=== PATIENT | male | born 1975 | race Caucasian/White ===

== ENCOUNTER → 2018-11-16 10:05 | Outpatient (CLI) | payer OTHER, SELFPAY ==
--- NOTE | 2018-11-16 10:08 | DI.RAD.S_ITS ---
PROCEDURE: XR FOOT LT MIN 3V INDICATIONS: rolled left ankle/foot w/pain/swelling TECHNIQUE: 3 views of the foot were acquired. COMPARISON: None. FINDINGS: Bones: No fractures or dislocations. No suspicious bony lesions. Calcaneal spurring. Soft tissues: No tibiotalar joint effusion. Achilles tendon appears normal. IMPRESSION: No fracture or dislocation. Dictated by: Aiyln Frederick M.D. on 11/16/2018 at 10:31 Approved by: Ailyn Frederick M.D. on 11/16/2018 at 10:32
--- NOTE | 2018-11-16 10:08 | DI.RAD.S_ITS ---
PROCEDURE: XR ANKLE LT MIN 3V INDICATIONS: rolled left ankle/foot w/pain/swelling TECHNIQUE: 3 views of the ankle were acquired. COMPARISON: [facility], CR, XR FOOT LT MIN 3V, 11/16/2018, 10:12. FINDINGS: Bones: No fractures or dislocations. Ankle mortise is normally aligned. No suspicious bony lesions. Calcaneal spurring. Soft tissues: No tibiotalar joint effusion. Achilles tendon appears normal. Soft tissue swelling in the lateral malleolus. IMPRESSION: No fracture or dislocation. Soft tissue swelling over the lateral malleolus. Dictated by: Ailyn Frederick M.D. on 11/16/2018 at 10:30 Approved by: Ailyn Frederick M.D. on 11/16/2018 at 10:31
== END ==
PROVIDERS: Visit Provider Nurse Practitioner
DX: M25.572 Pain in left ankle and joints of left foot (principal); M77.32 Calcaneal spur, left foot; R79.89 Other specified abnormal findings of blood chemistry
CPT/HCPCS: 73610; 73630

== ENCOUNTER 2024-02-05 10:32 | Emergency (ER) | payer OTHER, SELFPAY ==
[2024-02-05] VITALS (7 sets, daily range): BP systolic 133–171; BP diastolic 74–97; PULSE 91–116; RESP 14–20; TEMP 37.1; O2SAT 94–98; BMI 29.0
--- NOTE | 2024-02-05 10:56 | DI.RAD.S_ITS ---
PROCEDURE: XR CHEST 1V INDICATIONS: chest pain TECHNIQUE: One view of the chest was acquired. COMPARISON: None. FINDINGS: Surgical changes and devices: None. Lungs and pleura: Lungs are clear. No pleural effusions or pneumothorax. Mediastinum: Mediastinal contours appear normal. Heart size is normal. Bones and chest wall: No suspicious bony lesions. Overlying soft tissues appear unremarkable. IMPRESSION: No acute cardiothoracic process. Dictated by: Ridge Owusu M.D. on 02/05/2024 at 11:50 Approved by: Ridge Owusu M.D. on 02/05/2024 at 11:50
--- NOTE | 2024-02-05 10:56 | EKG_ITS ---
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
--- NOTE | 2024-02-05 11:11 | ED_ITS ---
HPI - General Adult General Chief complaint: Shortness of Breath/Dyspnea Stated complaint: Stomach pain, Shaky, flutter in chest Time Seen by Provider: 02/05/24 10:59 History of Present Illness HPI narrative: 48-year-old gentleman leans that he is not feeling well with fluttering in his chest since 9:00 p.m. increasing tremors, sense of constipation, he notes that he does drink alcohol regularly but does not consider himself an alcoholic and denies any history of withdrawal symptoms. He reports his usual alcohol volume last night, got up and was playing basketball with friends this morning. Describes his abdominal pain as involving the entire upper abdomen and tight. He feels that he has been increasingly constipated over the last couple of days today has not had a bowel movement but is passing flatus. No vomiting, fevers, headache, chest pain or palpitations Related Data Previous Rx's Medication Instructions Recorded omeprazole 40 mg capsule,delayed 40 mg PO DAILY #30 caps 02/05/24 release Allergies Allergy/AdvReac Type Severity Reaction Status Date / Time No Known Drug Allergies Allergy Verified 11/16/18 10:57 Review of Systems Review of Systems Narrative: Pertinent positive and negative findings as per HPI Patient History Social History Smoking Status: Never smoker Smoking Status: Never smoker Alcohol type: beer Exam Initial Vital Signs Initial Vital Signs: Vital Signs Temperature 98.7 F 02/05/24 10:52 Pulse Rate 116 H 02/05/24 10:52 Respiratory Rate 20 02/05/24 10:52 Blood Pressure 160/97 H 02/05/24 10:52 Pulse Oximetry 97 02/05/24 10:52 Oxygen Delivery Method Room Air 02/05/24 10:52 General: Healthy appearing but slightly flushed and appears uncomfortable with the abdominal pain HEENT: Moist mucous membranes, normal sclera with reactive pupils, Respiratory: Lungs are clear to auscultation, no wheezing no rales no rhonchi. Full and symmetrical air movement Cardiac: Tachycardic otherwise Regular rate and rhythm no murmurs no bruits Abdomen: Mild distention with guarding throughout the entire abdomen. No rebound, no flank pain Skin: Warm and dry, no rashes Neurologic: Grossly neurologically intact with no obvious asymmetries or abnormalities Extremities: No trauma, well perfused Psych: Cooperative, appropriate insight and affect Course Orders Ordered: ED Orders 02/05/24 10:56 XR chest 1V Stat EKG-12 Lead Stat 02/05/24 11:06 Complete Blood Count AUTO DIFF Stat Comprehensive Metabolic Panel Stat Lipase Stat Magnesium Stat NT-proBNP (BNP-Adult 18+) Stat PTT Partial Thromboplastin Adrian Stat Prothrombin Time INR Stat Troponin & CK Cardiac Panel Stat 02/05/24 11:54 CT abdomen pelvis w con Stat 02/05/24 12:50 Consult to BIOSOLIDS MANAGEMENT TECHNICIAN - Locomotive Mechanic Stat Discontinued Medications Aspirin (Aspirin 81 Mg Chew Tab) 324 mg PO NOW ONE Stop: 02/05/24 10:57 Last Admin: 02/05/24 13:25 Dose: Not Given Documented By: CHANNING Sodium Chloride (Normal Saline 0.9%) 1,000 mls @ 1,000 mls/hr IV BOLUS ONE Stop: 02/05/24 12:53 Last Infusion: 02/05/24 13:09 Dose: Infused Documented By: Admin: 02/05/24 11:59 Dose: 1,000 mls/hr Documented By: DIANNE Pantoprazole Sodium (Pantoprazole 40 Mg Vial) 40 mg IV NOW ONE Stop: 02/05/24 14:34 Last Admin: 02/05/24 14:51 Dose: 40 mg Documented By: CHANNING Vital Signs Vital signs: Vital Signs - 8 hr 02/05/24 10:52 02/05/24 10:59 02/05/24 11:00 Temperature 98.7 F Pulse Rate 116 H 116 H 112 H Respiratory Rate 20 14 15 Blood Pressure 160/97 H Pulse Oximetry 97 98 98 Oxygen Delivery Method Room Air 02/05/24 11:00 02/05/24 11:30 02/05/24 11:30 Temperature Pulse Rate 96 H Respiratory Rate 17 Blood Pressure 144/85 H 137/82 Pulse Oximetry 97 Oxygen Delivery Method 02/05/24 12:00 02/05/24 12:00 02/05/24 14:00 Temperature Pulse Rate 97 H 91 H Respiratory Rate 15 18 Blood Pressure 133/74 Pulse Oximetry 95 94 Oxygen Delivery Method 02/05/24 14:51 Temperature Pulse Rate 93 H Respiratory Rate 16 Blood Pressure 171/93 H Pulse Oximetry 98 Oxygen Delivery Method Room Air Medical Decision Making Lab Data 02/05/24 11:06 02/05/24 11:06 Labs: Lab Results 02/05/24 Range/Units 11:06 WBC 8.4 (4.5-11.0) X10^3/uL RBC 4.74 (4.5-5.9) X10^6/uL Hgb 14.4 (13.5-17.5) g/dL Hct 43.5 (41-53) % MCV 91.8 (80-100) fL MCH 30.5 (26-34) PG MCHC 33.2 (30-36) % RDW 13.3 (11.6-14.8) % Plt Count 162 (150-400) X10^3/uL Neut % (Auto) 84.4 H (50-75) % Lymph % (Auto) 10.6 L (25-40) % Martin % (Auto) 4.4 (3-14) % Eos % (Auto) 0.1 L (2-4) % Baso % (Auto) 0.5 (0-2) % Neut # (Auto) 7100 H (8441-7454) /uL Lymph # (Auto) 900 L (7335-9427) /uL Martin # (Auto) 400 (0-900) /uL Eos # (Auto) 0 (0-450) /uL Baso # (Auto) 0 (0-100) /uL PT 11.0 (9.4-12.5) SECONDS INR 1.0 (0.9-1.3) APTT 31 (25.1-36.5) SECONDS Sodium 138 (137-145) mmol/L Potassium 3.7 (3.4-5.1) mmol/L Chloride 102 (98-107) mmol/L Carbon Dioxide 21 L (22-32) mmol/L BUN 9 (9-20) mg/dL Creatinine 1.06 (0.66-1.25) mg/dL Estimated GFR > 60 (>60) mL/min BUN/Creatinine Ratio 8.5 (6-22) Glucose 85 (70-100) mg/dL Calcium 9.4 (8.4-10.2) mg/dL Magnesium 1.4 L (1.6-2.3) mg/dL Total Bilirubin 0.6 (0.2-1.3) mg/dL AST 135 H (17-59) IU/L ALT 152 H (<50) IU/L Alkaline Phosphatase 73 (38-126) U/L Total Creatine Kinase 240 H (55-170) U/L Troponin I < 0.012 (0.01-0.034) ng/mL NT-Pro-B Natriuret Pep < 20 (<125) pg/mL Total Protein 8.6 H (6.3-8.2) g/dL Albumin 5.2 H (3.5-5.0) g/dL Globulin 3.4 (1.7-4.1) g/dL Albumin/Globulin Ratio 1.5 (1.0-2.8) Lipase 85 (23-300) U/L Imaging Data CT scan - abdomen/pelvis: Radiologist's Impression: PROCEDURE: CT ABDOMEN PELVIS W CON INDICATIONS: diffuse abdominal pain TECHNIQUE: After the administration of intravenous contrast, axial sections acquired from the lung bases to the pubic symphysis. Coronal and sagittal reformats were performed. For radiation dose reduction, the following was used: automated exposure control, adjustment of mA and/or kV according to patient size. COMPARISON: None. FINDINGS: Image quality: Diagnostic. Peritoneum: No pneumoperitoneum or ascites. Bones: No acute osseous abnormality. Bilateral pseudoarthroses at the L5-S1 levels (4/73). Lower Chest: No acute abnormality. Liver: Borderline enlarged at 19.4 cm in the craniocaudal dimension (4/50). Diffuse hypoattenuation. Gallbladder: No stones or pericholecystic fluid. Biliary tree: No intrahepatic or extrahepatic biliary ductal dilatation. Pancreas: Within normal limits. Spleen: Normal in size and contour. Kidneys: No hydronephrosis or obstructive urolithiasis. Adrenals: No adrenal nodularity. Bladder: Mildly distended urinary bladder (5/75). : No acute abnormality. Stomach: Normal in size and contour. Bowel: Normal in diameter without any bowel obstruction. Appendix within normal limits (2/113). Scattered colonic diverticulosis. Lymph Nodes: No retroperitoneal, mesenteric, or inguinal lymphadenopathy. Vascular: No abdominal aortic aneurysm. The visualized arterial vasculature is patent. Soft Tissues: No acute abnormality. IMPRESSION: 1. Hepatomegaly with hepatic steatosis. 2. 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 3. Otherwise, no acute CT abnormality of the abdomen/pelvis. Dictated by: Ridge Owusu M.D. on 02/05/2024 at 13:20 MDM Narrative Medical decision making narrative: CC: Increasing abdominal pain Complicating co-morbidities: Notes that the pain has been intermittently present for about a month increasing over the last 24 hours with tightness such that he came for evaluation today. He reports that he has been taking more ibuprofen on an empty stomach over the last month but no black stools emesis. Data collected from: patient, Differential considered: Acute surgical abdomen, perforated viscus, appendicitis, cholecystitis Exam documented above, pertinent findings include: 48-year-old gentleman uncomfortable with the abdominal tightness with guarding throughout the abdomen no significant rebound heart and lungs are benign Lab Test results independently reviewed as above. Pertinent findings: CBC is unremarkable with no anemia Chemistries are reassuring with normal creatinine. Magnesium slightly low at 1.4. Elevated transaminases with AST at 135. and ALT at 152. Total protein and albumin are both slightly elevated Lipase is unremarkable. Independently reviewed EKG: Sinus tachycardia at 1:07 a.m.. Minor T-wave abnormalities inferiorly, no acute ischemiaImaging studies independently reviewed: Chest X shows no acute abnormality Consultations: BIOSOLIDS MANAGEMENT TECHNICIAN, discussed alcohol use disorder with the patient, still in pre contemplation/denial phase. He is given resources for establishing a primary care provider as well as AA meetings. Treatments: Fluids, IV pantoprazole Postvoid bladder scan had 14 cc Discussion: 48-year-old gentleman presents with abdominal pain across his upper abdomen tenderness with palpation. Labs are reassuring with the exception of slightly elevated ALT and AST. CT scan of the abdomen does not show acute findings to explain his pain. We discussed possible diagnosis of gastritis caused from his alcohol as well as 800 mg of ibuprofen on an empty stomach practice. This point he is pain-free, significantly improved, no evidence of urinary retention or constipation as a cause of the pin. He did talk with our health care social worker about his alcohol use with recommendations to cut down if not completely stop. We discussed his elevated liver studies, need for primary care physician and recommendation to use 30 days of omeprazole to see if this will help the pain. I also recommended that he cut down on ibuprofen. Questions are answered and at this time he is safe for discharge Discharge Plan Departure Patient Disposition: Home Clinical Impression: Abdominal pain Qualifiers: Abdominal location: generalized Qualified Code(s): R10.84 - Generalized abdominal pain Gastritis Qualifiers: Gastritis type: unspecified gastritis Chronicity: acute Gastritis bleeding: w ithout bleeding Qualified Code(s): K29.00 - Acute gastritis without bleeding Instructions: DI for Gastritis Activity Restrictions/Additional Instructions: Thank you for coming in today Your blood work showed elevated liver enzymes but no other acute findings or infections. Your chest x-ray was unremarkable, your CT scan did not show acute abnormalities to explain your pain. There were some developing liver abnormalities appreciated, no gallbladder findings no evidence of infection or need for surgical consultation. Given the pain that you are experiencing I am wondering if you may have some gastritis which is irritation to the stomach lining. Given the mildly elevated liver studies as well as the slight abnormality to your liver appreciated on CT scan, your liver is not appreciating the amount of alcohol and is having to metabolize. Alcohol can also be directly irritating to your stomach lining as can ibuprofen. I have sent a prescription for omeprazole to take daily for the next 30 days to [facility]. This is an acid reducing medication to try and help the stomach lining repair itself. I would recommend decreasing if not stopping altogether your alcohol use. Rather than 800 mg of ibuprofen, consider using 400 mg of ibuprofen (2 [id number] pills) and 1 Tylenol every 6 hours If you find that you are getting worse or develop any new symptoms, please feel free to return to the emergency department for further evaluation. Prescriptions: New omeprazole 40 mg capsule,delayed release(DR/EC) 40 mg PO DAILY Qty: 30 0RF Referrals: Kati Becker FNP-BC [Primary Care Provider] - Stand Alone Forms: Patient Portal/API/Survey
[2024-02-05 11:12] LABS: Add Manual Diff / Slide Review NO; Basophils Absolute Auto 0 /uL (0-100); Basophils Percent Auto 0.5 % (0-2); Eosinophils Absolute Auto 0 /uL (0-450); Eosinophils Percent Auto 0.1 % (2-4); Hematocrit 43.5 % (41-53); Hemoglobin 14.4 g/dL (13.5-17.5); Lymphocytes Absolute Auto 900 /uL (1100-4500); Lymphocytes Percent Auto 10.6 % (25-40); Mean Corpuscular HGB Conc 33.2 % (30-36); Mean Corpuscular Hemoglobin 30.5 PG (26-34); Mean Corpuscular Volume 91.8 fL (80-100); Monocytes Absolute Auto 400 /uL (0-900); Monocytes Percent Auto 4.4 % (3-14); Neutrophils Absolute Auto 7100 /uL (1500-7000); Neutrophils Percent Auto 84.4 % (50-75); Platelet Count 162 X10^3/uL (150-400); Red Blood Cell Count 4.74 X10^6/uL (4.5-5.9); Red Cell Distribution Width 13.3 % (11.6-14.8); White Blood Cell Count 8.4 X10^3/uL (4.5-11.0)
[2024-02-05 11:22] LABS: PTT Partial Thromboplastin Tim 31 SECONDS (25.1-36.5)
[2024-02-05 11:26] LABS: Alanine Aminotransferase 152 IU/L (<50); Albumin 5.2 g/dL (3.5-5.0); Albumin Globulin Ratio 1.5 (1.0-2.8); Alkaline Phosphatase 73 U/L (38-126); Aspartate Aminotransferase 135 IU/L (17-59); BUN Creatinine Ratio 8.5 (6-22); Bilirubin Total 0.6 mg/dL (0.2-1.3); Blood Urea Nitrogen 9 mg/dL (9-20); Calcium 9.4 mg/dL (8.4-10.2); Carbon Dioxide 21 mmol/L (22-32); Chloride 102 mmol/L (98-107); Creatine Kinase 240 U/L (55-170); Estimated Glomerular Filt Rate > 60 mL/min (>60); Globulin 3.4 g/dL (1.7-4.1); Glucose 85 mg/dL (70-100); HEMOLYSIS < 15 (0-50); Lipase 85 U/L (23-300); Magnesium 1.4 mg/dL (1.6-2.3); Potassium 3.7 mmol/L (3.4-5.1); Sodium 138 mmol/L (137-145); Total Protein 8.6 g/dL (6.3-8.2)
[2024-02-05 11:36] LABS: NT-proBNP (BNP-Adult 18+) < 20 pg/mL (<125); Troponin I < 0.012 ng/mL (0.01-0.034)
--- NOTE | 2024-02-05 11:52 | PC.NURSE ---
Patient has been having abd discomfort for a month. He has not had a bm today but is passing gas. This am at 0900 he began having fluttering feelings in his chest. He denies nausea and pain. No history of surgery Patient drinks alcohol on a regular basis. last drink was last night
--- NOTE | 2024-02-05 11:54 | DI.CT.S_ITS ---
PROCEDURE: CT ABDOMEN PELVIS W CON INDICATIONS: diffuse abdominal pain TECHNIQUE: After the administration of intravenous contrast, axial sections acquired from the lung bases to the pubic symphysis. Coronal and sagittal reformats were performed. For radiation dose reduction, the following was used: automated exposure control, adjustment of mA and/or kV according to patient size. COMPARISON: None. FINDINGS: Image quality: Diagnostic. Peritoneum: No pneumoperitoneum or ascites. Bones: No acute osseous abnormality. Bilateral pseudoarthroses at the L5-S1 levels (4/73). Lower Chest: No acute abnormality. Liver: Borderline enlarged at 19.4 cm in the craniocaudal dimension (4/50). Diffuse hypoattenuation. Gallbladder: No stones or pericholecystic fluid. Biliary tree: No intrahepatic or extrahepatic biliary ductal dilatation. Pancreas: Within normal limits. Spleen: Normal in size and contour. Kidneys: No hydronephrosis or obstructive urolithiasis. Adrenals: No adrenal nodularity. Bladder: Mildly distended urinary bladder (5/75). : No acute abnormality. Stomach: Normal in size and contour. Bowel: Normal in diameter without any bowel obstruction. Appendix within normal limits (2/113). Scattered colonic diverticulosis. Lymph Nodes: No retroperitoneal, mesenteric, or inguinal lymphadenopathy. Vascular: No abdominal aortic aneurysm. The visualized arterial vasculature is patent. Soft Tissues: No acute abnormality. IMPRESSION: 1. Hepatomegaly with hepatic steatosis. 2. 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 3. Otherwise, no acute CT abnormality of the abdomen/pelvis. Dictated by: Ridge Owusu M.D. on 02/05/2024 at 13:20 Approved by: Ridge Owusu M.D. on 02/05/2024 at 13:24
[2024-02-05] MEDS: SODIUM CHLORIDE 0.9% 1,000 ML 1000 ML IV (11:59)
[2024-02-05] MEDS: PANTOPRAZOLE 40 MG VIAL IV (14:51)
--- NOTE | 2024-02-05 15:19 | CM.SWNOTE ---
ED SUSPECT ARTIST Note SUSPECT ARTIST receives consult from RN due to patient's ETOH use and it was reported that he and spouse would like to speak with SUSPECT ARTIST about resources. Patient is 48 y/o male who presents to the ED due to concern for fluttering feeling in chest, constipation and shakiness. Patient reports he drinks 6-8 beers a day. Patient states he does not have a PCP, patient has [employer] preferred insurance. SUSPECT ARTIST enters room to meet with patient, patient presents as A/Ox4. Patient endorses he was concerned about his abdominal pain and came to the ED. Patient discusses his regular ETOH use and states he drinks to cope, patient endorses concern for finanacial stressors, stress from work and now states concern for his health. Patient endorses he would like to get in good health for new year. SUSPECT ARTIST discusses ETOH outpatient resources and AA with patient and provides information to patient. Patient endorses interest in establishing care with PCP and would like assistance with this. SUSPECT ARTIST contacts [address] and schedules PCP appt with PARRISH Srivastava for 02/11/24 at 8:15am check in. Patient endorses agreement and understanding. Plan: patient to d/c to home upon medical clearance, patient to f/u with new PCP appt on 02/11/24, patient to f/u with resources provided. LOTTIE Polanco
== END 2024-02-05 15:22 | disposition home or self-care (01) ==
PROVIDERS: Emergency Provider Emergency Medicine; PCP Nurse Practitioner Family
DX: R10.84 Generalized abdominal pain (principal); K29.00 Acute gastritis without bleeding; R00.0 Tachycardia, unspecified; F10.90 Alcohol use, unspecified, uncomplicated; Y90.9 Presence of alcohol in blood, level not specified
CPT/HCPCS: 36415; 51798; 71045; 74177; 80053; 82550; 83690; 83735; 83880; 84484; 85025; 85610; 85730; 93005; 96361; 96374; 99284; J2470; Q9967

== ENCOUNTER → 2024-02-11 09:04 | Outpatient (CLI) | payer OTHER, SELFPAY ==
[2024-02-11 10:13] LABS: HEMOLYSIS < 15 (0-50); Iron 112 ug/dL (49-181)
[2024-02-11 10:14] LABS: Cholesterol 217 mg/dL (140-199); HDL Cholesterol 110 mg/dL (40-60); LDL Cholesterol Calculated 98 mg/dL (<100); Triglycerides 45 mg/dL (35-150)
[2024-02-11 10:25] LABS: Percent Iron Saturation 47 % (20-50); Total Iron Binding Capacity 238 ug/dL (261-462); Transferrin 229 mg/dL (206-381)
[2024-02-12 19:25] LABS: Hepatitis B Surface Antigen NEGATIVE s/c (NEGATIVE)
[2024-02-12 19:43] LABS: Hep C Virus Ab w/Reflex Quant NEGATIVE s/c (NEGATIVE)
== END ==
PROVIDERS: PCP Nurse Practitioner Family; Referring Provider Nurse Practitioner Family; Visit Provider Nurse Practitioner Family
DX: Z11.59 Encounter for screening for other viral diseases (principal); Z13.220 Encounter for screening for lipoid disorders; R74.8 Abnormal levels of other serum enzymes
CPT/HCPCS: 36415; 80061; 83540; 83550; 86803; 87340